=== PATIENT | male | born 1945 | race Caucasian/White ===

== ENCOUNTER 2018-05-27 21:43 | Emergency (ER) | payer MEDICARE ==
[~2018-05-27] VITALS: Ht 167.6 cm; Wt 83.0 kg
--- NOTE | ~2018-05-27 | EKG ---
[place], [place] ELECTROCARDIOGRAM REPORT NAME: DESMOND STOCK UNIT #: [id number] ROOM: DOCTOR: MALLIKA DRAFT REPORT BIRTHDATE: [address] 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
[~2018-05-27 21:43] MED LIST: ALTACE5 MG PO; ASPI-COR81 M1 PO; BACTRIM DS 8001 TA1 PO; CO Q-1010 MG PO; CRESTOR20 MG PO; FLOMAX0.4 MG PO; MEDROL DOSEPAK4 MG PO; PERCOCET 325 MG1 TA2 PO; PRILOSEC20 M1 PO; ZYRTEC10 MG PO
[2018-05-27 21:44] VITALS: BP 134/89
[2018-05-27 22:54] LABS: HEMATOCRIT 49.8 % (42.0-52.0); HEMOGLOBIN 16.8 g/dl (14.0-18.0); MEAN CELL VOLUME 93.3 fl (80.0-94.0); MEAN CORPUSCULAR HGB 31.5 pg (27.0-31.0); MEAN CORPUSCULAR HGB CONC 33.7 g/dl (33.0-37.0); MEAN PLATELET VOLUME 10.1 fl (9.6-12.3); PLATELET COUNT AUTOMATED 155 10*3/uL (130-400); RED BLOOD COUNT 5.34 10*6/uL (4.50-5.90); RED CELL DISTRI WIDTH 12.8 % (0-14.5); WHITE BLOOD COUNT 11.1 10*3/uL (4.8-10.8)
[2018-05-27 23:06] LABS: ACT PARTIAL THROMBO TIME 23.5 SECONDS (20.8-31.5)
[2018-05-27 23:11] LABS: ALBUMIN 3.6 gm/dl (3.1-4.5); ALKALINE PHOSPHATASE 81 U/L (45-117); BUN 13 mg/dl (7-24); CHLORIDE 103 mmol/L (98-107); CREATININE 1.15 mg/dL (0.70-1.30); POTASSIUM 4.3 mmol/L (3.5-5.1); SGOT/AST 33 IU/L (3-35); SGPT/ALT 26 U/L (12-78); SODIUM 138 mmol/L (136-145); TOTAL PROTEIN 7.6 gm/dL (6.4-8.2)
[2018-05-27 23:15] LABS: ATYPICAL LYMPHS 1 % (0-0); BASOPHILS 1 % (0-1); PLATELET SUFFICIENCY NORMAL (NORMAL); TOTAL CELLS COUNTED 100 #CELLS
[2018-05-27 23:17] LABS: TROPONIN I < 0.015 ng/ml (<0.045)
[2018-05-28] MEDS ORDERED: VIBRAMYCIN100 MG PO (00:03)
[2018-05-28] MEDS ORDERED: PROAIR HFA8.5 GM INH (00:03)
[2018-05-28] MEDS ORDERED: LOPRESSOR50 M1 PO (09:22)
== END 2018-05-28 00:33 | disposition home or self-care (01) ==
LOC: ED 21:43
PROVIDERS: Physician Assistant
DX: J18.9 Pneumonia, unspecified organism (principal); R94.31 Abnormal electrocardiogram [ECG] [EKG]; I25.10 Atherosclerotic heart disease of native coronary artery without angina pectoris; I25.2 Old myocardial infarction; I10 Essential (primary) hypertension; F17.200 Nicotine dependence, unspecified, uncomplicated; Z79.899 Other long term (current) drug therapy; Z79.82 Long term (current) use of aspirin

== ENCOUNTER 2018-05-28 06:50 | Inpatient (IN) | payer MEDICARE ==
[2018-05-28] VITALS (8 sets, daily range): BP systolic 145–175; BP diastolic 82–102
[~2018-05-28] VITALS: Ht 167.6 cm; Wt 83.6 kg
--- NOTE | ~2018-05-28 | EKG ---
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
--- NOTE | ~2018-05-28 | PR ---
[place], [place] PROGRESS NOTE [id number] UNIT #: [id number] ROOM: 516 DOCTOR: MARA THOMPSON MD BIRTHDATE: [birth year] DOS: 05/29/2018 SUBJECTIVE: The patient feels well. He has no chest pain or palpitation. No breathing difficulty at rest. 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 He has very little cough. He ate well and walked a little bit as well. PHYSICAL EXAMINATION: GENERAL: He is a very pleasant, alert. The patient is very comfortable, in good mood. VITAL SIGNS: Pulse is regular at 96 beats per minute, blood pressure 124/82. NECK: JVP is normal. AJR is negative. PULMONARY: Pretty much as yesterday, i.e., markedly reduced breath sounds over the left lower half of the lung nunes, some crackles. EXTREMITIES: No edema in the lower extremity edema. IMPRESSION: 1. The patient has bioprosthetic aortic valve that is functioning normally. 2. No evidence of any acute coronary artery issues at this time. 3. Exertional dyspnea, this is chronic. 4. There is a mild tachycardia and I think this needed to be tamed somewhat; therefore, metoprolol tartrate is being increased from 50 b.i.d. to 75 mg b.i.d. From cardiac standpoint, you may discharge this patient. I saw this patient on behalf of Dr. Prado. MARA THOMPSON MD CM:PNTRANS 1112 [id number] MARA THOMPSON MD 05/29/18 1421 interface
--- NOTE | ~2018-05-28 | CON ---
[place], [place] REPORT OF CONSULTATION NAME: DESMOND STOCK [facility] #: [id number] UNIT #: [id number] ROOM: 516 DOCTOR: MARA THOMPSON MD BIRTHDATE: [birth year] DOS: 05/28/2018 HISTORY OF PRESENT ILLNESS: This is a 72-year-old -[place] man with a history of coronary artery disease. He had a coronary stent deployed 20 years ago after acute myocardial infarction and Dr. Prado had done that. Subsequently, LV systolic function was normal. 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 He has never had COPD. He does have hyperlipidemia, essential hypertension, but he has never had a stroke, congestive heart failure, kidney problems, GI problems and he has not smoked cigarettes for over 30 years. He has been admitted through the Emergency Department because of 7 days of flu-like symptoms where he has been feeling tired, weak, had aching of the muscles initially and has had then developed a cough. He was coughing up some yellow sputum, but had no hemoptysis. He has not had any palpitations at rest; however, when he walks, he really feels his heart beating fast. He has never had any loss of consciousness. No chest pain or swelling of the lower extremities. He does wake up at night with short of breath, reason is not quite clear. ALLERGIES: He is not allergic to any medications. HOME MEDICATIONS: Included rosuvastatin, omeprazole, ramipril, Zyrtec, aspirin and coenzyme Q10. PHYSICAL EXAMINATION: GENERAL: This reveals a patient who is very pleasant, alert. He is sitting in his bed and reading. His complexion is fine. There is no thyromegaly or finger clubbing. VITAL SIGNS: Pulse is 96 and regular, blood pressure 145/90 and highest blood pressure was 175/89. NECK: JVP is normal. AJR is negative. There is no carotid bruit. HEART: There is no cardiomegaly. Auscultation reveals somewhat loud aortic component of the second heart sound and there is grade 1/6 early peaking systolic murmur over the aortic area. good pedal pulses and no edema in the lower extremities. RESPIRATORY: Percussion note reveals dullness in the lower one-third of the left lung posteriorly and auscultation reveals severely reduced breath sounds in the lower half of the left lung with reduced breath sounds in the apices as the right lung has good aeration with very few adventitious sounds. There are inspiratory and expiratory wheezes and rhonchi and breath sounds are somewhat diminished on the right side as well. ABDOMEN: Supple, nontender. No bruit or pulsatile mass. An ECG showed sinus tachycardia at 101 beats per minute and complete right bundle-branch block. [place], [place] REPORT OF CONSULTATION NAME: DESMOND STOCK UNIT #: [id number] ROOM: 516 DOCTOR: MARA THOMPSON MD BIRTHDATE: [birth year] Chest x-ray was reviewed by me shows normal heart size and a markedly elevated left diaphragm with some atelectasis and possibly underlying pneumonia. There is no pulmonary edema. LABORATORY DATA: BUN 13, creatinine 1.15. Electrolytes are normal. Troponin is less than 0.015. Hemoglobin is 16.8, WBC 11.1. IMPRESSION: 1. This patient has coronary artery disease, which is asymptomatic. 2. The patient's bioprosthetic valve is functioning normally. 3. There is no evidence of cardiac decompensation. 4. 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 PLAN: I do not recommend any further cardiac workup. I thank you on behalf of Dr. Prado for this consult. MARA THOMPSON MD CM:CONSTR:REPORT OF CONSULTATION 1114 06/11/18 0809 interface
[~2018-05-28 06:50] MED LIST changes: +PROAIR HFA8.5 GM INH; +VIBRAMYCIN100 MG PO
[2018-05-28 07:58] LABS: BASO % 0.3 % (0.0-1.0); EOS # 0.1 10*3/uL (0.0-0.4); EOS % 0.7 % (1.0-4.0); HEMATOCRIT 50.1 % (42.0-52.0); HEMOGLOBIN 16.6 g/dl (14.0-18.0); LYMPH # 2.7 10*3/uL (1.3-4.4); LYMPH % 30.6 % (27.0-41.0); MEAN CELL VOLUME 94.7 fl (80.0-94.0); MEAN CORPUSCULAR HGB 31.4 pg (27.0-31.0); MEAN CORPUSCULAR HGB CONC 33.1 g/dl (33.0-37.0); MEAN PLATELET VOLUME 9.6 fl (9.6-12.3); MONO # 1.3 10*3/uL (0.1-1.0); MONO % 14.7 % (3.0-9.0); NEUT # 4.6 10*3/uL (2.3-7.9); NEUT % 53.4 % (47.0-73.0); PLATELET COUNT AUTOMATED 149 10*3/uL (130-400); RED BLOOD COUNT 5.29 10*6/uL (4.50-5.90); RED CELL DISTRI WIDTH 12.8 % (0-14.5); WHITE BLOOD COUNT 8.7 10*3/uL (4.8-10.8)
[2018-05-28 08:14] LABS: BUN 16 mg/dl (7-24); CHLORIDE 103 mmol/L (98-107); CREATININE 1.19 mg/dL (0.70-1.30); POTASSIUM 4.8 mmol/L (3.5-5.1); SODIUM 139 mmol/L (136-145); TROPONIN I 0.018 ng/ml (<0.045)
[2018-05-28] MEDS ORDERED: LOPRESSOR50 M1 PO (09:22)
[2018-05-29] VITALS: BP 124/82
[2018-05-29 06:43] LABS: BASO % 0.2 % (0.0-1.0); HEMATOCRIT 46.2 % (42.0-52.0); HEMOGLOBIN 15.3 g/dl (14.0-18.0); LYMPH # 1.7 10*3/uL (1.3-4.4); LYMPH % 13.2 % (27.0-41.0); MEAN CELL VOLUME 93.9 fl (80.0-94.0); MEAN CORPUSCULAR HGB 31.1 pg (27.0-31.0); MEAN CORPUSCULAR HGB CONC 33.1 g/dl (33.0-37.0); MEAN PLATELET VOLUME 10.3 fl (9.6-12.3); MONO # 0.8 10*3/uL (0.1-1.0); MONO % 5.8 % (3.0-9.0); NEUT # 10.7 10*3/uL (2.3-7.9); NEUT % 80.6 % (47.0-73.0); PLATELET COUNT AUTOMATED 164 10*3/uL (130-400); RED BLOOD COUNT 4.92 10*6/uL (4.50-5.90); RED CELL DISTRI WIDTH 12.9 % (0-14.5); WHITE BLOOD COUNT 13.2 10*3/uL (4.8-10.8)
[2018-05-29 07:01] LABS: ALBUMIN 3.3 gm/dl (3.1-4.5); CHLORIDE 107 mmol/L (98-107); HDL CHOLESTEROL 36 mg/dl (40-60); POTASSIUM 4.4 mmol/L (3.5-5.1); SODIUM 139 mmol/L (136-145)
[2018-05-29 07:06] LABS: ALKALINE PHOSPHATASE 66 U/L (45-117); BUN 21 mg/dl (7-24); CHOLESTEROL 154 mg/dL (<200); CREATININE 0.98 mg/dL (0.70-1.30); FREE T4 0.95 ng/dl (0.76-1.46); LDL CHOLESTEROL 96 mg/dL (9-159); SGOT/AST 26 IU/L (3-35); SGPT/ALT 20 U/L (12-78); THYROID STIM HORMONE (HS) 0.699 uIU/ml (0.358-4.75); TOTAL PROTEIN 7.1 gm/dL (6.4-8.2); TRIGLYCERIDES 109 mg/dl (<150); VLDL CHOLESTEROL 22 mg/dL (6-40)
[2018-05-29 07:32] LABS: VITAMIN D, 25-HYDROXY 26.6 ng/mL (30-100)
[2018-05-29 12:00] VITALS: BP 142/82
[2018-05-29 16:00] VITALS: BP 117/73
[2018-05-29 20:00] VITALS: BP 149/85
[2018-05-30] VITALS: BP 138/82
[2018-05-30 07:07] LABS: BASO % 0.1 % (0.0-1.0); HEMATOCRIT 43.3 % (42.0-52.0); HEMOGLOBIN 14.2 g/dl (14.0-18.0); LYMPH # 2.7 10*3/uL (1.3-4.4); LYMPH % 15.6 % (27.0-41.0); MEAN CELL VOLUME 94.5 fl (80.0-94.0); MEAN CORPUSCULAR HGB CONC 32.8 g/dl (33.0-37.0); MEAN PLATELET VOLUME 10.2 fl (9.6-12.3); MONO # 1.1 10*3/uL (0.1-1.0); MONO % 6.5 % (3.0-9.0); NEUT # 13.3 10*3/uL (2.3-7.9); NEUT % 77.3 % (47.0-73.0); PLATELET COUNT AUTOMATED 171 10*3/uL (130-400); RED BLOOD COUNT 4.58 10*6/uL (4.50-5.90); RED CELL DISTRI WIDTH 13.1 % (0-14.5); WHITE BLOOD COUNT 17.2 10*3/uL (4.8-10.8)
[2018-05-30] MEDS ORDERED: METOPROLOL TART50 M1 PO (09:53)
[2018-05-30] MEDS ORDERED: AVPAK AZITHROM250 MG PO (09:53)
[2018-05-30] MEDS ORDERED: PREDNISONE10 MG PO (09:53)
[2018-05-30] MEDS ORDERED: PROAIR HFA8.5 GM INH (09:53)
== END 2018-05-30 11:16 | disposition home or self-care (01) | DRG 202 ==
LOC: ED 06:50 → 5E 07:38 → EDHOLD 07:38 → 5E 08:10
PROVIDERS: Emergency Medicine; Registered Nurse
DX: J20.9 Acute bronchitis, unspecified (principal); E87.2 Acidosis; I10 Essential (primary) hypertension; N20.0 Calculus of kidney; K21.9 Gastro-esophageal reflux disease without esophagitis; E78.00 Pure hypercholesterolemia, unspecified; R00.0 Tachycardia, unspecified; G56.82 Other specified mononeuropathies of left upper limb; E78.5 Hyperlipidemia, unspecified; I25.10 Atherosclerotic heart disease of native coronary artery without angina pectoris; Z95.5 Presence of coronary angioplasty implant and graft; I25.2 Old myocardial infarction; Z95.2 Presence of prosthetic heart valve; Z95.1 Presence of aortocoronary bypass graft; Z87.891 Personal history of nicotine dependence; Z87.01 Personal history of pneumonia (recurrent); Z82.0 Family history of epilepsy and other diseases of the nervous system; Z79.82 Long term (current) use of aspirin; Z79.899 Other long term (current) drug therapy

== ENCOUNTER 2020-09-20 12:52 | Emergency (ER) | payer MEDICARE ==
[~2020-09-20] VITALS: Wt 77.6 kg
[~2020-09-20 12:52] MED LIST changes: +AVPAK AZITHROM250 MG PO; +LOPRESSOR50 M1 PO; +METOPROLOL TART50 M1 PO; +PREDNISONE10 MG PO
[2020-09-20 12:57] VITALS: BP 147/87
[2020-09-20 13:15] LABS: BILIRUBIN Negative (Negative); BLOOD Negative (Negative); CLARITY Clear (Clear); COLOR Dark Yellow (Yellow); GLUCOSE Negative (Negative); KETONE Negative (Negative); LEUKO ESTERASE 1+ (Negative); NITRITE Negative (Negative); PH 5.5 (4.5-8.0); SPECIFIC GRAVITY 1.025 (1.001-1.030)
[2020-09-20 13:26] LABS: MUCOUS TRACE; WHITE BLOOD CELL CAST 16-20
[2020-09-20] MEDS ORDERED: MACROBID100 M1 PO (14:11)
== END 2020-09-20 14:28 | disposition home or self-care (01) ==
LOC: ED 12:52
PROVIDERS: Emergency Medicine
DX: N39.0 Urinary tract infection, site not specified (principal); I10 Essential (primary) hypertension; K21.9 Gastro-esophageal reflux disease without esophagitis; I25.2 Old myocardial infarction; E78.00 Pure hypercholesterolemia, unspecified; Z79.899 Other long term (current) drug therapy; Z79.82 Long term (current) use of aspirin; Z95.1 Presence of aortocoronary bypass graft; Z95.2 Presence of prosthetic heart valve; Z98.890 Other specified postprocedural states

== ENCOUNTER 2020-11-09 10:27 | Emergency (ER) | payer MEDICARE ==
[~2020-11-09] VITALS: Ht 177.8 cm; Wt 75.7 kg
[~2020-11-09 10:27] MED LIST changes: +MACROBID100 M1 PO
[2020-11-09 10:36] VITALS: BP 141/79
[2020-11-09 10:50] LABS: BILIRUBIN Negative (Negative); BLOOD 2+ (Negative); CLARITY Clear (Clear); COLOR Yellow (Yellow); GLUCOSE Negative (Negative); KETONE Negative (Negative); LEUKO ESTERASE 1+ (Negative); NITRITE Negative (Negative); PH 5.5 (4.5-8.0)
[2020-11-09 10:59] LABS: BACTERIA TRACE; MUCOUS TRACE; WBC 16-20 wbc/hpf (0-5)
[2020-11-09 11:03] LABS: BASO % 0.3 % (0.0-1.0); EOS # 0.1 10*3/uL (0.0-0.4); EOS % 1.1 % (1.0-4.0); HEMATOCRIT 44.6 % (42.0-52.0); LYMPH % 27.9 % (27.0-41.0); MEAN CELL VOLUME 93.5 fl (80.0-94.0); MEAN CORPUSCULAR HGB 31.2 pg (27.0-31.0); MEAN CORPUSCULAR HGB CONC 33.4 g/dl (33.0-37.0); MEAN PLATELET VOLUME 9.9 fl (9.6-12.3); MONO # 0.6 10*3/uL (0.1-1.0); MONO % 8.3 % (3.0-9.0); NEUT # 4.5 10*3/uL (2.3-7.9); NEUT % 62.3 % (47.0-73.0); PLATELET COUNT AUTOMATED 153 10*3/uL (130-400); RED BLOOD COUNT 4.77 10*6/uL (4.50-5.90); RED CELL DISTRI WIDTH 12.7 % (0-14.5); WHITE BLOOD COUNT 7.2 10*3/uL (4.8-10.8)
[2020-11-09 11:14] LABS: BUN 18 mg/dl (7-24); CHLORIDE 106 mmol/L (98-107); CREATININE 0.97 mg/dL (0.70-1.30); POTASSIUM 4.1 mmol/L (3.5-5.1); SODIUM 140 mmol/L (136-145)
[2020-11-09] MEDS ORDERED: SEPTDS PO (12:43)
[2020-11-09] MEDS ORDERED: FLOMAX0.4 MG PO (12:44)
== END 2020-11-09 12:45 | disposition home or self-care (01) ==
LOC: ED 10:27
PROVIDERS: Internal Medicine
DX: N13.2 Hydronephrosis with renal and ureteral calculous obstruction (principal); Z79.899 Other long term (current) drug therapy; Z79.82 Long term (current) use of aspirin; Z95.1 Presence of aortocoronary bypass graft; Z98.890 Other specified postprocedural states; Z95.818 Presence of other cardiac implants and grafts; Z95.2 Presence of prosthetic heart valve